=== PATIENT | female | born 1955 | race Caucasian/White ===

== ENCOUNTER 2017-06-29 15:31 | Emergency (ER) | payer OTHER ==
[2017-06-29] MEDS ORDERED: Ondansetron ODT TAB* 4 MG PO ONE ×2 (16:43→18:22)
--- NOTE | 2017-06-29 16:57 | ED ---
Respiratory - HPI Summary HPI Summary: 62F presents with sinus congestion, cough and SOB for a week. She admits to ear pressure, sore throat, chest tightened, generalized body aches especially in her back. She admits to nausea and vomiting. She has history of heart murmur. She is taking cough medication without relief. She denies any swelling into her legs or history of CHF. She did smoke in the past but has not smoked since. She denies any history of asthma or COPD. She denies any history of NC. She states the cough was dry and then became productive. She admits to generalized abdominal pain. She denies any dysuria, hematuira, frequency, or flank pain. she states her back hurts the most. She denies any injury. She denies any loss of bowel or bladder or saddle anaesthesia. - History of Current Complaint Chief Complaint: EDUpperRespComplaint Stated Complaint: SOB Time Seen by Provider: 06/29/17 16:24 Pain Intensity: 9 - Allergy/Home Medications Allergies/Adverse Reactions: Allergies Allergy/AdvReac Type Severity Reaction Status Date / Time Aspirin Allergy Bleeding Verified 06/29/17 15:39 PMH/Surg Hx/FS Hx/Imm Hx Endocrine/Hematology History: Reports: Hx Thyroid Disease Denies: Hx Anticoagulant Therapy, Hx Diabetes Cardiovascular History: Reports: Hx Hypertension Musculoskeletal History: Denies: Hx Osteoporosis - Cancer History Hx Chemotherapy: No Hx Radiation Therapy: No - Surgical History Surgery Procedure, Year, and Place: TUMMY TUCK; LIPOSUCTION Infectious Disease History: No Infectious Disease History: Denies: Traveled Outside the [place] in Last 30 Days - Family History Known Family History: Positive: Hypertension Review of Systems Positive: Fever Positive: Chest Pain Positive: Shortness Of Breath, Cough Positive: Vomiting, Nausea All Other Systems Reviewed And Are Negative: Yes Physical Exam Triage Information Reviewed: Yes Vital Signs On Initial Exam: Initial Vitals Temp Pulse Resp BP Pulse Ox 98.9 F 90 18 160/76 100 06/29/17 15:36 06/29/17 15:36 06/29/17 15:36 06/29/17 15:36 06/29/17 15:36 Vital Signs Reviewed: Yes Appearance: Positive: Ill-Appearing Skin: Positive: Warm, Dry Head/Face: Positive: Normal Head/Face Inspection Eyes: Positive: Normal, EOMI, ASHLEE, Conjunctiva Clear ENT: Positive: Pharynx normal, Nasal congestion, TMs normal Respiratory/Lung Sounds: Positive: Breath Sounds Present, Other - upper resp sounds heard Cardiovascular: Positive: Normal, RRR Abdomen Description: Positive: Soft, Other: - diffuse tenderness. Negative: CVA Tenderness (R), CVA Tenderness (L) Bowel Sounds: Positive: Present Musculoskeletal: Positive: Normal, Strength/ROM Intact - back, Other - tender across lower back Neurological: Positive: Normal Psychiatric: Positive: Normal Diagnostics - Vital Signs Vital Signs Temp Pulse Resp BP Pulse Ox 06/29/17 15:36 98.9 F 90 18 160/76 100 - Laboratory Result Diagrams: 06/29/17 17:32 06/29/17 17:32 Lab Statement: Any lab studies that have been ordered have been reviewed, and results considered in the medical decision making process. - Radiology chest Xray Interpretation: No Acute Changes Radiology Interpretation Completed By: Radiologist - EKG No standard instances Cardiac Rate: NL EKG Rhythm: Sinus Rhythm EKG Interpretation: normal sinus rthymn, no generalized ST elevation EKG Comparison: Other - no previous EKG Disposition - Course Course Of Treatment: 62F presents with sinus congestion, cough and SOB for a week. She admits to ear pressure, sore throat, chest tightened, generalized body aches especially in her back. She admits to nausea and vomiting. She has history of heart murmur. She is taking cough medication without relief. She denies any swelling into her legs or history of CHF. She did smoke in the past but has not smoked since. She denies any history of asthma or COPD. She denies any history of NC. She states the cough was dry and then became productive. She admits to generalized abdominal pain. She denies any dysuria, hematuira, frequency, or flank pain. she states her back hurts the most. She denies any injury. She denies any loss of bowel or bladder or saddle anaesthesia. on exam has sinus congestions. lungs sound congestion but no consolidation. patient appears ill on exam. has tenderness across abdomen and back. chest xray normal. labs normal wbc, lactic, normal urine. EKG no diffuse ST elevation to think pericarditis, will treat for pneumonia although xray normal as patient appears ill. will give steriod, inhaler, zofran, and cough medication for symptoms. patient understands and agrees with plan. - Differential Dx - Cardiopulmonary Differential Diagnoses - Cardiopulmonary: Acute Dyspnea, Bronchitis, Lower Resp Infection - Diagnoses Provider Diagnoses: Upper respiratory infection Discharge - Discharge Plan Condition: Good Disposition: HOME Prescriptions: Azithromycin TAB* [Zithromax TAB (Z-LUIS MANUEL) 250 mg #6 tabs] 250 mg PO DAILY #4 tab Ondansetron ODT TAB* [Zofran 4 MG Odt TAB*] 4 mg PO Q6H PRN #12 tab.odt PRN Reason: Nausea guaiFENesin/CODIEN 100MG-10MG* [Robitussin AC 100Mg-10Mg*] 5 ml PO Q6H PRN #50 ml MDD 20ml PRN Reason: Cough predniSONE TAB* [Deltasone TAB*] 40 mg PO DAILY #8 tab Patient Education Materials: Upper Respiratory Infection (ED) Referrals: Tatiana Gómez MD [Primary Care Provider] - Additional Instructions: Take cough medication 5ml (1 teaspoon) every 6 hours as needed cough Use inhaler up to two puffs every 4-6 hours for cough Take steroid once a day starting tomorrow Take zofran every 6 hours for nausea Take antibiotic once a day for 4 more days Use saline in the nose for nasal congestion, can also get Sudafed at pharmacy counter for nasal congestion Use humidifier or place warm bowls of water around the room for cough Take Tylenol or ibuprofen for pain every 6 hours Return to ED if develop any new or worsening symptoms
[2017-06-29] MEDS ORDERED: Acetaminophen TAB* 325 MG PO ONE (17:12)
[2017-06-29] MEDS ORDERED: NS 0.9% 1000 ML* 1,000 ML IV ONE (17:13)
[2017-06-29 17:51] LABS: Hematocrit 43 % (35-47); Hemoglobin 14.3 g/dl (12.0-16.0); Mean Corpuscular HGB Conc 33 g/dl (31-36); Mean Corpuscular Hemoglobin 27 pg (27-31); Mean Corpuscular Volume 82 fL (80-97); Mean Platelet Volume 9 um3 (7.4-10.4); Red Blood Count 5.25 10^6/ul (4.0-5.4); Red Cell Distribution Width 14 % (10.5-15); White Blood Count 6.6 10^3/ul (3.5-10.8)
--- NOTE | 2017-06-29 18:01 | RAD ---
INDICATION: Cough and shortness of breath COMPARISON: None TECHNIQUE: PA and lateral views of the chest were obtained. FINDINGS: The heart and mediastinum are normal in size and contour. The lungs are grossly clear. There is no evidence of large pleural effusion. Visualized bones are normal for the patient's age. There is no radiographic evidence of free air beneath the diaphragm IMPRESSION: No radiographic evidence of acute cardiopulmonary disease.
[2017-06-29 18:03] LABS: Urine Bilirubin Negative (Negative); Urine Glucose Negative (Negative); Urine Nitrite Negative (Negative)
[2017-06-29 18:03] LABS: ALT 27 U/L (7-52); AST 25 U/L (13-39); Albumin 4.3 g/dL (3.2-5.2); Alkaline Phosphatase 44 U/L (34-104); Anion Gap 8 mmol/L (2-11); BUN/Creatinine Ratio 20.2 (8-20); Blood Urea Nitrogen 18 mg/dL (6-24); CO2 Carbon Dioxide 26 mmol/L (22-32); Calcium 9.1 mg/dL (8.6-10.3); Chloride 99 mmol/L (101-111); EGFR African American 82.9 (>60); EGFR Non-African American 64.5 (>60); Globulin 3.1 g/dL (2-4); Glucose 110 mg/dL (70-100); Lipase < 10 U/L (11.0-82.0); Magnesium 2.2 mg/dL (1.9-2.7); Sodium 133 mmol/L (133-145); Total Protein 7.4 g/dL (6.4-8.9)
[2017-06-29] MEDS ORDERED: Azithromycin TAB* 250 MG PO ONE (18:16)
[2017-06-29] MEDS ORDERED: predniSONE TAB* 20 MG PO ONE (18:16)
[2017-06-29] MEDS ORDERED: guaiFENesin/CODIEN 100MG-10MG* 5 ML UDC PO ONE ×2 (18:22→18:35)
[2017-06-29] MEDS ORDERED: Albuterol HFA INHALER* 8 gm MDI INH ONE (18:22)
[2017-06-29 18:38] VITALS: BP 115/66
== END 2017-06-29 18:55 | disposition home or self-care (01) ==
LOC: ED 15:31
DX: J06.9 Acute upper respiratory infection, unspecified (principal); E07.9 Disorder of thyroid, unspecified; I10 Essential (primary) hypertension; Z88.6 Allergy status to analgesic agent
CPT/HCPCS: 36415; 71020; 80053; 81003; 83605; 83690; 83735; 83880; 84484; 85025; 87040; 93005; 96360; 99283; A9270-GY; J7512

== ENCOUNTER 2018-02-11 08:46 | Day surgery (SDC) | payer OTHER ==
[~2018-02-11 08:46] MED LIST: Acetaminophen TAB* 325 MG PO PRN; Buffered Lidocaine 0.9% SYRIN* 5 ML/SYR SYRINGE INTRADERM ONE
[2018-02-11] MEDS ORDERED: Midazolam* 1 MG/ML 2 ML VIAL (2 MG) ONE ×3 (10:31→10:56)
[2018-02-11] MEDS ORDERED: fentaNYL* 50 MCG/ML 2 ML VIAL (100 MCG VIAL) ONE (10:41)
[2018-02-11] MEDS ORDERED: Lidocaine 2% PF * 5 ML VIAL ONE (11:16)
[2018-02-11] MEDS ORDERED: Propofol* 10 MG/ML 20 ML BTL IV PUSH ONE (11:16)
[2018-02-11 11:33] VITALS: BP 114/69
[2018-02-11] MEDS ORDERED: Carbachol 0.01% OPH.SOL* 1.5 ML OPHTH.SOLN ONE (12:02)
[2018-02-11] MEDS ORDERED: Cyclopentolate 1% OPTH.SOL* 2 ML BTL ONE (13:05)
[2018-02-11] MEDS ORDERED: Lidocaine 1%* 5 ML VIAL ONE (13:05)
[2018-02-11] MEDS ORDERED: Tropicamide 1% OPTH.SOL* BTL ONE (13:05)
[2018-02-11] MEDS ORDERED: Phenylephrine 2.5% OPTH.SOL* 2 ML BTL ONE (13:05)
[2018-02-11] MEDS ORDERED: Neomycin/Polymy/Dex OPHTH.OIN* 3.5 GM ONE (13:05)
[2018-02-11] MEDS ORDERED: Tetracaine 0.5% OPTH.SOL 4 ML* 1 DROP BTL ONE (13:05)
[2018-02-11] MEDS ORDERED: Ketorolac 0.5% OPHTH (NF) 0.5 % 5 ML BTL ONE (13:05)
--- NOTE | 2018-02-11 22:18 | OP ---
DATE OF OPERATION: 02/11/18 - [facility] DATE OF : 57 SURGEON: Nico Stoddard MD ANESTHESIA: Local MAC. PRE-OP DIAGNOSIS: Cataract, right eye. POST-OP DIAGNOSIS: Cataract, right eye. OPERATIVE PROCEDURE: Phacoemulsification and cataract extraction with posterior chamber intraocular lens implant in sulcus and anterior vitrectomy. DESCRIPTION OF PROCEDURE: The patient was brought to the operating room and received intravenous sedation. A drop of tetracaine was placed into her right eye. The patient was prepped and draped in the usual sterile fashion for ophthalmic surgery and attention was directed to the right eye where a speculum was placed. A paracentesis was created at the 11 o'clock position and 0.1 cc of 1% preservative- free lidocaine was injected into the anterior chamber followed by DisCoVisc. The eye was digitally stabilized while a 2.75-mm keratome was used to create a triplanar clear corneal incision at the 9 o'clock position. A continuous curvilinear capsulorrhexis was created with a cystotome and Utrata forceps. The patient moved during this point in the procedure and caused the anterior capsulorrhexis to be somewhat oval in shape. BSS on a cannula was used to hydrodissect the lens from the capsule. Phacoemulsification was performed in a [id number] technique to create four fragments. Three of them were removed and during removal of the fourth fragment, the capsule noted to tear. The fourth fragment was elevated with viscoelastic through the paracentesis and , although an attempt was made to remove it with gentle phacoemulsification, part of the fourth fragment floated into the vitreous. Further viscoelastic was placed into the capsular bag area to help tamponade possible vitreous coming forward. The paracentesis was extended slightly and a second paracentesis was created at the 7 o'clock position. A bimanual vitrector was introduced into the eye through these 2 paracentesis. Vitrectomy was performed to remove any possible vitreous as well as clean remaining cortical material. The vitrectomy instruments removed and viscoelastic was then injected into the sulcus. It appeared that the anterior capsule was intact and no vitreous was noted. An MN60AC 23.5 diopter lens was manually folded and inserted through the initial wound such that the leading haptic was in the sulcus. The trailing haptic was dunked into place using a curved tying forceps. The vitrectomy instrument was reintroduced into the eye and was used to remove viscoelastic from posterior to the lens. Anterior to the lens, there was no vitreous noted. So, irrigation and aspiration through the anterior vitrectomy was performed. Miostat was placed into the anterior chamber to constrict the pupil, which became small and round but no vitreous noted. BSS on a cannula was used to hydrate the wounds. At the end of the case, the pupil was round, the lens was centered in the sulcus. The eye pressure appeared normal, and the wounds were water tight. Topical Maxitrol ointment was placed on the surface of the eye. The eye was closed, patched, and shielded. The patient was sent to the recovery room with postop instructions and followup appointment given. [id number]/[facility] #: [id number] DEJON
== END 2018-02-11 11:48 | disposition home or self-care (01) ==
LOC: OREAST 08:46
PROVIDERS: ATTEND Ophthalmology
DX: H25.11 Age-related nuclear cataract, right eye (principal); Z87.891 Personal history of nicotine dependence; I34.0 Nonrheumatic mitral (valve) insufficiency; I45.10 Unspecified right bundle-branch block; M19.90 Unspecified osteoarthritis, unspecified site; F41.8 Other specified anxiety disorders
CPT/HCPCS: A9270-GY; J2250; J2704; J3010; V2632

== ENCOUNTER 2018-02-16 09:32 | Emergency (ER) | payer OTHER ==
[2018-02-16] MEDS ORDERED: NS 0.9% 1000 ML* 1,000 ML IV ONE (10:35)
[2018-02-16 10:50] LABS: ABS Basophils 0.1 10^3/ul (0-0.2); ABS Eosinophils 0 10^3/ul (0-0.6); ABS Lymphocytes 2.7 10^3/ul (1.0-4.8); ABS Monocytes 0.5 10^3/ul (0-0.8); ABS Neutrophils 4.1 10^3/ul (1.5-7.7); ABS Nucleated RBC 0 10^3/ul; Eosinophil % 0.3 % (0-6); Hematocrit 39 % (35-47); Hemoglobin 13.4 g/dl (12.0-16.0); Lymphocyte % 36.5 % (25-47); Mean Corpuscular HGB Conc 34 g/dl (31-36); Mean Corpuscular Hemoglobin 28 pg (27-31); Mean Corpuscular Volume 82 fL (80-97); Mean Platelet Volume 9.4 um3 (7.4-10.4); Nucleated Red Blood Cells % 0.1; Platelet Count 244 10^3/ul (150-450); Red Cell Distribution Width 14 % (10.5-15); White Blood Count 7.4 10^3/ul (3.5-10.8)
[2018-02-16 11:06] LABS: EGFR Non-African American 78.6 (>60)
[2018-02-16] MEDS ORDERED: Iodixanol* (CONTRAST) 320 MG/ML 100 ML SDV IV ONE (11:26)
--- NOTE | 2018-02-16 12:32 | RAD ---
INDICATION: Epigastric pain x1 week COMPARISON: None TECHNIQUE: Supine and upright views of the abdomen were obtained. FINDINGS: The small bowel and colon appear nondistended. No free intraperitoneal air is seen. No grossly abnormal or pathologic appearing calcifications are noted. Visualized bones are within normal limits for the patient's age. IMPRESSION: Normal abdominal radiograph.
[2018-02-16 12:59] LABS: Urine Appearance Clear; Urine Blood Negative (Negative); Urine Color Yellow; Urine Ketones Trace (Negative); Urine Protein Negative (Negative); Urine Specific Gravity 1.058 (1.010-1.030); Urine Urobilinogen Negative (Negative)
--- NOTE | 2018-02-16 13:11 | RAD ---
CLINICAL HISTORY: 2 weeks of abdominal pain and dark stools. Relevant surgical history includes "bleeding from ulcers" COMPARISON: None TECHNIQUE: Contrast enhanced CT examination of the abdomen and pelvis from the lung bases through the initial tuberosities. The patient received 100 mL Visipaque 320 intravenously prior to imaging. FINDINGS: VISUALIZED LUNG BASES: The visualized lung bases are grossly clear. There is no pleural effusion. ABDOMEN AND PELVIS: The liver is homogenously hypodense relative to the spleen. In the right lobe of the liver there is a 4 mm hypoattenuating focus that cannot be characterized further on this CT examination. Also in the right lobe of the liver adjacent to the gallbladder (axial image 34) there is an 11 mm hypoattenuating focus with a Hounsfield unit greater than that of a simple cyst. The spleen, pancreas and adrenal glands are grossly normal in appearance. The gallbladder is normal. The kidneys are normal in appearance without focal mass, calcification or signs of hydronephrosis. Evaluation of the gastrointestinal tract is limited in the absence of oral contrast. The small and large bowel are not distended. The patient's normal appendix is identified in the right lower quadrant with gas in the lumen measuring 5 mm in diameter (axial image 62). There are diverticula throughout the length of the colon becoming more concentrated at the rectosigmoid colon where there are foci of inspissated contrast. There is no definite inflammatory change including bowel wall thickening although evaluation is limited without oral contrast in the lumen. There is no definite pericolonic mesenteric fat stranding. There is no gross retroperitoneal or mesenteric lymphadenopathy. The pelvic viscera is normal in appearance. The abdominal aorta and iliac arteries are normal in course and diameter. Multilevel degenerative changes of the lower thoracic and lumbar spine includes loss of intervertebral disc height and anterior marginal osteophyte formation at the level of the thoracic spine.There are no sinister bone lesions. IMPRESSION: 1. Colonic diverticulosis without definite focal inflammatory change characteristic of acute diverticulitis within the limitations of a CT exam without oral contrast. 2. Normal appendix. 3. At least 2 low-attenuation lesions in the right lobe of the liver, the larger measuring 11 mm with a Hounsfield unit greater than that of a simple cyst. There is no prior liver imaging available for comparison to comment on chronicity. Recommend nonemergent liver ultrasound or MRI for further characterization. 4. Additional chronic and degenerative changes.
--- NOTE | 2018-02-16 13:55 | ED ---
Deborah Pineda Julia, scribed for Ace Platt MD on 02/16/18 at 1034 . Abdominal Pain/Female - HPI Summary HPI Summary: This patient is a 62 year old F presenting to [facility] with a chief complaint of abdominal pain for the past two weeks worsening with black stool today. She states that for the past two days she has been taking Pepto Bismol for her symptoms. She is concerned for a GI bleed because she had similar symptoms in the past, resulting in an upper GI bleed. Current pain is 3/10. Patient states she is currently hungry. - History of Current Complaint Chief Complaint: EDAbdPain Stated Complaint: ABD PAIN,DARK STOOL Time Seen by Provider: 02/16/18 10:12 Hx Obtained From: Patient Onset/Duration: Gradual Onset Timing: Constant Pain Intensity: 3 Pain Scale Used: 0-10 Numeric Location: Diffuse Alleviating Factor(s): Nothing Associated Signs and Symptoms: Positive: Other: - melena Allergies/Adverse Reactions: Allergies Allergy/AdvReac Type Severity Reaction Status Date / Time aspirin Allergy Bleeding Verified 02/11/18 09:33 hydrocodone [From Vicodin] Allergy n/v Verified 02/11/18 09:33 NSAIDS (Non-Steroidal Allergy gi bleed Verified 02/11/18 09:33 Anti-Inflamma Home Medications: Home Medications Ciprofloxacin 0.3% OPTH.TATIANA* [Cipro 0.3% Opth*] 1 drop RIGHT EYE QID 02/16/18 [ History Confirmed 02/16/18] Dorzolamide HCl/Timolol Maleat [Cosopt Eye Drops] 1 drop RIGHT EYE TID 02/16/18 [History Confirmed 02/16/18] Dorzolamide/Timolol OPTH (NF) [Cosopt (NF)] 1 drop RIGHT EYE BID 02/16/18 [ History Confirmed 02/16/18] Magnesium Oxide [Magnesium] 400 mg PO DAILY 02/16/18 [History Confirmed 02/16/18 ] Multivitamins/Minerals TAB* [Theragran/minerals TAB*] 1 tab PO DAILY 02/16/18 [ History Confirmed 02/16/18] prednisoLONE acetate [Prednisolone Acetate] 1 drop RIGHT EYE QID 02/16/18 [ History Confirmed 02/16/18] PMH/Surg Hx/FS Hx/Imm Hx Endocrine/Hematology History: Reports: Hx Diabetes - borderline, no meds, Hx Thyroid Disease Denies: Hx Anticoagulant Therapy Cardiovascular History: Reports: Hx Hypertension - no meds, Hx Valvular Heart Disease - currently being tested Denies: Other Cardiovascular Problems/Disorders GI History: Reports: Hx Gastroesophageal Reflux Disease, Hx Irritable Bowel Denies: Other GI Disorders Musculoskeletal History: Reports: Hx Arthritis - back, fingers, knees Denies: Hx Osteoporosis, Other Musculoskeletal History Sensory History: Reports: Hx Cataracts - ashlie, Hx Contacts or Glasses - glasses Denies: Hx Hearing Aid Opthamlomology History: Reports: Hx Cataracts - ashlie, Hx Contacts or Glasses - glasses Neurological History: Reports: Hx Headaches - in morning, Hx Migraine Psychiatric History: Reports: Hx Anxiety - at times, Hx Depression - no meds - Cancer History Hx Chemotherapy: No Hx Radiation Therapy: No - Surgical History Surgery Procedure, Year, and Place: TUMMY TUCK; LIPOSUCTION, 25 yrs ago, oz Hx Anesthesia Reactions: No Infectious Disease History: No Infectious Disease History: Denies: Traveled Outside the [place] in Last 30 Days - Family History Known Family History: Positive: Hypertension - Social History Alcohol Use: None Substance Use Type: Reports: None Smoking Status (MU): Former Smoker Amount Used/How Often: pack a day for 20 yrs Review of Systems Negative: Fever Gastrointestinal: Other - melena Positive: Abdominal Pain All Other Systems Reviewed And Are Negative: Yes Physical Exam - Summary Physical Exam Summary: VITAL SIGNS: Reviewed. GENERAL: Patient is a well-developed and nourished female who is lying comfortable in the stretcher. Patient is not in any acute respiratory distress. HEAD AND FACE: No signs of trauma. No ecchymosis, hematomas or skull depressions. No sinus tenderness. EYES: PERRLA, EOMI x 2, No injected conjunctiva, no nystagmus. EARS: Hearing grossly intact. Ear canals and tympanic membranes are within normal limits. MOUTH: Oropharynx within normal limits. NECK: Supple, trachea is midline, no adenopathy, no JVD, no carotid bruit, no c- spine tenderness, neck with full ROM. CHEST: Symmetric, no tenderness at palpation LUNGS: Clear to auscultation bilaterally. No wheezing or crackles. CVS: Regular rate and rhythm, S1 and S2 present, no murmurs or gallops appreciated. ABDOMEN: Soft, LUQ tenderness. No signs of distention. No rebound no guarding, and no masses palpated. Bowel sounds are normal. EXTREMITIES: FROM in all major joints, no edema, no cyanosis or clubbing. NEURO: Alert and oriented x 3. No acute neurological deficits. Speech is normal and follows commands. 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 Triage Information Reviewed: Yes Vital Signs On Initial Exam: Initial Vitals Temp Pulse Resp BP Pulse Ox 97.5 F 65 17 142/86 98 02/16/18 09:42 02/16/18 09:42 02/16/18 09:42 02/16/18 09:42 02/16/18 09:42 Vital Signs Reviewed: Yes Diagnostics - Vital Signs Vital Signs Temp Pulse Resp BP Pulse Ox 02/16/18 09:42 97.5 F 65 17 142/86 98 - Laboratory Lab Results: Lab Results 02/16/18 02/16/18 02/16/18 Range/Units 10:41 10:41 12:40 WBC 7.4 (3.5-10.8) 10^3/ul RBC 4.80 (4.0-5.4) 10^6/ul Hgb 13.4 (12.0-16.0) g/dl Hct 39 (35-47) % MCV 82 (80-97) fL MCH 28 (27-31) pg MCHC 34 (31-36) g/dl RDW 14 (10.5-15) % Plt Count 244 (150-450) 10^3/ul MPV 9.4 (7.4-10.4) um3 Neut % (Auto) 55.2 (38-83) % Lymph % (Auto) 36.5 (25-47) % [place] % (Auto) 7.1 H (0-7) % Eos % (Auto) 0.3 (0-6) % Baso % (Auto) 0.9 (0-2) % Absolute Neuts (auto) 4.1 (1.5-7.7) 10^3/ul Absolute Lymphs (auto) 2.7 (1.0-4.8) 10^3/ul Absolute Monos (auto) 0.5 (0-0.8) 10^3/ul Absolute Eos (auto) 0 (0-0.6) 10^3/ul Absolute Basos (auto) 0.1 (0-0.2) 10^3/ul Absolute Nucleated RBC 0 10^3/ul Nucleated RBC % 0.1 Sodium 139 (139-145) mmol/L Potassium 3.8 (3.5-5.0) mmol/L Chloride 107 (101-111) mmol/L Carbon Dioxide 28 (22-32) mmol/L Anion Gap 4 (2-11) mmol/L BUN 22 (6-24) mg/dL Creatinine 0.75 (0.51-0.95) mg/dL Est GFR ( Amer) 101.0 (>60) Est GFR (Non-Af Amer) 78.6 (>60) BUN/Creatinine Ratio 29.3 H (8-20) Glucose 99 (70-100) mg/dL Calcium 9.0 (8.6-10.3) mg/dL Total Bilirubin 0.60 (0.2-1.0) mg/dL AST 16 (13-39) U/L ALT 15 (7-52) U/L Alkaline Phosphatase 55 (34-104) U/L C-Reactive Protein 5.15 H (< 5.00) mg/L Total Protein 6.5 (6.4-8.9) g/dL Albumin 3.9 (3.2-5.2) g/dL Globulin 2.6 (2-4) g/dL Albumin/Globulin Ratio 1.5 (1-3) Lipase 148 H (11.0-82.0) U/L Urine Color Yellow Urine Appearance Clear Urine pH 5.0 (5-9) Ur Specific [place] 1.058 H (1.010-1.030) Urine Protein Negative (Negative) Urine Ketones Trace A (Negative) Urine Blood Negative (Negative) Urine Nitrate Negative (Negative) Urine Bilirubin Negative (Negative) Urine Urobilinogen Negative (Negative) Ur Leukocyte Esterase Negative (Negative) Urine Glucose Negative (Negative) Result Diagrams: 02/16/18 10:41 02/16/18 10:41 Lab Statement: Any lab studies that have been ordered have been reviewed, and results considered in the medical decision making process. - Radiology Abdomen XR Radiology Interpretation Completed By: Radiologist - Normal abdominal radiograph. ED Physician has reviewed this report. - CT Abdominal CT CT Interpretation Completed By: Radiologist - 1. Colonic diverticulosis without definite focal inflammatory change characteristic of acute diverticulitis within the limitations of a CT exam without oral contrast. 2. Normal appendix. 3. At least 2 low-attenuation lesions in the right lobe of the liver, the larger measuring 11 mm with a Hounsfield unit greater than that of a simple cyst. There is no prior liver imaging available for comparison to comment on chronicity. Recommend nonemergent liver ultrasound or MRI for further characterization. 4. Additional chronic and degenerative changes. ED Physician has reviewed this report. - EKG 1121 Cardiac Rate: Bradycardia EKG Rhythm: Sinus Bradycardia - at 50 BPM EKG Interpretation: no ST elevations EKG Comparison: No Significant Change - 06/29/17 Re-Evaluation - Re-Evaluation First Re-Evaluation Time: 13:30 Change: Improved - Abdominal pain is resolved. Abdominal Pain Fem Course/Dx - Course Course Of Treatment: Initially the patient was placed on a body liner, IV access was obtained, and the patient was started and an IV fluids. Blood test results without any significant abnormality except 4 CRP of 5.1, and lipase 148. Occult blood test is negative. EKG: Normal sinus rhythm at without any ST elevations. Chest x-ray impression: No acute Pulmonary disease. In the ED course she remains stable with mild pain that she declines any pain medications. Patient reports that she is hungry and she needs something to eat. Abdominopelvic CT impression 1. Colonic diverticulosis without definite focal inflammatory change characteristic of acute diverticulitis within the limitations of a CT exam without oral contrast. 2. Normal appendix. 3. At least 2 low-attenuation lesions in the right lobe of the liver, the larger measuring 11 mm with a Hounsfield unit greater than that of a simple cyst. There is no prior liver. imaging available for comparison to comment on chronicity. Recommend non emergent liver. ultrasound or MRI for further characterization. 4. Additional chronic and degenerative changes. Since the patient has an increased lipase however the patients symptoms have resolved, she doesnt have any pain, she doesnt have any nausea vomiting the patient will be discharged home with follow-up with primary care physician. After the patient ate the patient is given better and she has no complaints. I discussed all the findings and test results with the patient. Patient was instructed to return to the emergency room immediately if any of the symptoms return or worsens. Plan of care was discussed with the patient and understands and agrees. All questions were answered at patient satisfaction. There were no further complaints or concerns. Lung exam before discharge: CTA B/L. Good air exchange. No wheezing or crackles heard. CVS: S1 and S2 present. No murmurs appreciated. Patient is alert and oriented x 3. Patient is hemodynamically stable. Patient will be discharged home with follow up PCP in the next 2-3 days. Patient was informed about the liver cyst and needs to follow up with the primary care physician. - Diagnoses Differential Diagnosis: Positive: Appendicitis, Bowel Obstruction, Constipation , Diverticulitis, Gall Bladder Disease Provider Diagnoses: Upper abdominal pain, Liver cyst Discharge - Sign-Out/Discharge Documenting (check all that apply): Discharge/Admit/Transfer - Discharge Plan Condition: Stable Disposition: HOME Patient Education Materials: Abdominal Pain (ED) Referrals: Tatiana Gómez MD [Primary Care Provider] - 2 Days Additional Instructions: RETURN TO THE EMERGENCY DEPARTMENT FOR ANY WORSENING OR NEW SYMPTOMS. - Billing Disposition and Condition Condition: STABLE Disposition: Home The documentation as recorded by the Deborah kidd Julia accurately reflects the service I personally performed and the decisions made by Lc moran Walter, MD.
[2018-02-16 14:15] VITALS: BP 142/81
== END 2018-02-16 14:19 | disposition home or self-care (01) ==
LOC: ED 09:32
DX: R10.10 Upper abdominal pain, unspecified (principal); K76.89 Other specified diseases of liver; K57.30 Diverticulosis of large intestine without perforation or abscess without bleeding; R00.1 Bradycardia, unspecified; Z87.891 Personal history of nicotine dependence; Z88.6 Allergy status to analgesic agent; Z88.5 Allergy status to narcotic agent
CPT/HCPCS: 36415; 74019; 74177; 80053; 81003; 82272; 83690; 85025; 86140; 93005; 96360; 96361; 99283; Q9967

== ENCOUNTER 2018-06-10 07:03 | Day surgery (SDC) | payer OTHER ==
[2018-06-10] MEDS ORDERED: Midazolam* 1 MG/ML 2 ML VIAL (2 MG) ONE ×2 (08:42→08:55)
[2018-06-10 09:28] VITALS: BP 107/64
[2018-06-10] MEDS ORDERED: Neomycin/Polymy/Dex OPHTH.OIN* 3.5 GM ONE (12:21)
[2018-06-10] MEDS ORDERED: Tetracaine 0.5% OPTH.SOL 4 ML* 1 DROP BTL ONE (12:21)
[2018-06-10] MEDS ORDERED: Phenylephrine 2.5% OPTH.SOL* 2 ML BTL ONE (12:21)
[2018-06-10] MEDS ORDERED: Tropicamide 1% OPTH.SOL* BTL ONE (12:21)
[2018-06-10] MEDS ORDERED: Ketorolac 0.5% OPHTH (NF) 0.5 % 5 ML BTL ONE (12:21)
[2018-06-10] MEDS ORDERED: Lidocaine 1%* 5 ML VIAL ONE (12:21)
[2018-06-10] MEDS ORDERED: Cyclopentolate 1% OPTH.SOL* 2 ML BTL ONE (12:21)
--- NOTE | 2018-06-11 09:53 | OP ---
DATE OF OPERATION: 06/10/18 [facility] DATE OF : 57 SURGEON: Dr. Nico Stoddard. SALT GRINDER: None. ANESTHESIA: Topical with intravenous sedation. PRE-OP DIAGNOSIS: Cataract, left eye. POST-OP DIAGNOSIS: Cataract, left eye. OPERATIVE PROCEDURE: Phacoemulsification and cataract extraction with posterior chamber intraocular lens implant, left eye. COMPLICATIONS: None. BLOOD LOSS: None. DESCRIPTION OF PROCEDURE: The patient was brought to the operating room and received a small amount of intravenous sedation. A drop of Tetracaine was placed in her left eye. She was prepped and draped in the usual sterile fashion for ophthalmic surgery and attention was directed to the left eye where a speculum was placed. A paracentesis was created at the 5 o'clock position and 0.1 cc of 1 percent preservative-free Lidocaine was injected into the anterior chamber followed by DisCoVisc. The eye was digitally stabilized while a 2.75 mm keratome was used to create a triplanar clear corneal incision at the 3 o'clock position. A continuous curvilinear capsulorrhexis was created with a cystotome and Utrata forceps. BSS on a cannula was used to hydrodissect the lens from the capsule. Phacoemulsification was performed in a divide-and- conquer technique to create four fragments which were removed. Residual cortical material was removed with irrigation and aspiration. DisCoVisc was used to inflate the capsular bag and an AU00T0 24.0 diopter lens was folded and inserted into the capsular bag. DisCoVisc was removed using irrigation and aspiration. BSS on a cannula was used to hydrate the corneal stroma and seal the wound. At the end of the case the pupil was round and the lens was centered. The eye was of normal pressure and the wound was water tight. The speculum was removed and topical Maxitrol ointment was placed on the surface of the eye. The eye was closed, patched and shielded and the patient was sent to the recovery room in stable condition with post operative instructions and follow-up appointment given. [id number]/[facility] #: [id number] DEJON
== END 2018-06-10 09:42 | disposition home or self-care (01) ==
LOC: OREAST 07:03
PROVIDERS: ATTEND Ophthalmology
DX: H25.12 Age-related nuclear cataract, left eye (principal); I34.0 Nonrheumatic mitral (valve) insufficiency; F41.8 Other specified anxiety disorders
CPT/HCPCS: A9270-GY; J2250; V2632

== ENCOUNTER 2018-07-11 09:46 | Day surgery (SDC) | payer OTHER ==
[~2018-07-11 09:46] MED LIST changes: -Acetaminophen TAB* 325 MG PO PRN; +Dexamethasone IV* 4 MG/ML 1 ML (4 MG) IV SLOW PU ONE; +Famotidine IV* 10 MG/ML 2 ML (20 mg) IV ONE
[2018-07-11] MEDS ORDERED: Famotidine IV* 10 MG/ML 2 ML (20 mg) ONE (10:19)
[2018-07-11] MEDS ORDERED: Dexamethasone IV* 4 MG/ML 1 ML (4 MG) ONE (10:19)
[2018-07-11] MEDS ORDERED: ceFAZolin 2 GM PREMIX in ORs 2 GM/50 ML BAG IVPB ONE (10:19)
[2018-07-11] MEDS ORDERED: Morphine VIAL* 10 MG/ML 1 ML VIAL ONE (10:37)
[2018-07-11] MEDS ORDERED: EPINEPHRINE 1 MG/ML 1 ML VIAL ONE (10:52)
[2018-07-11] MEDS ORDERED: Bupivacaine 0.5% SDV PF* 30ML VIAL ONE (10:52)
[2018-07-11] MEDS ORDERED: Bupivacaine 0.5% W/EPI SDV* 30 ML VIAL ONE ×2 (10:53→11:41)
[2018-07-11] MEDS ORDERED: Midazolam* 1 MG/ML 2 ML VIAL (2 MG) ONE (11:54)
[2018-07-11] MEDS ORDERED: fentaNYL* 50 MCG/ML 2 ML VIAL (100 MCG VIAL) ONE (11:54)
[2018-07-11] MEDS ORDERED: Lidocaine 2% PF * 5 ML VIAL ONE (11:55)
[2018-07-11] MEDS ORDERED: Propofol* 10 MG/ML 20 ML BTL IV PUSH ONE (11:55)
[2018-07-11] MEDS ORDERED: EPHEDrine (Pressors)* 50 MG/ML VIAL ONE (12:09)
[2018-07-11] MEDS ORDERED: Ondansetron INJ* 2 MG/ML VIAL ONE (12:23)
[2018-07-11] MEDS ORDERED: oxyCODONE TAB* 5 MG TAB PO PRN (12:25)
[2018-07-11] MEDS ORDERED: Naloxone* 0.4 MG/ML 1 ML VIAL IV PRN (12:25)
[2018-07-11] MEDS ORDERED: DiMENhydriNATE IV* 50 MG/ML VIAL IV PUSH PRN (12:25)
[2018-07-11] MEDS ORDERED: fentaNYL* 50 MCG/ML 2 ML VIAL (100 MCG VIAL) IV PRN (12:25)
[2018-07-11 13:47] VITALS: BP 134/69
--- NOTE | 2018-07-14 00:20 | OP ---
DATE OF OPERATION: 07/11/18 - MERGED WITH [facility] DATE OF : 57 SURGEON: Pedro York MD BB SHOT PACKER: WILNER Granados. Physician recruitment and outreach assistant was required for the length of the procedure for assistance with positioning, knee manipulation, and closure. ANESTHESIOLOGIST: Dr. Lokesh Vazquez. ANESTHESIA: General anesthesia, approximately 10 cc of 0.25% Marcaine with epinephrine local anesthesia. PRE-OP DIAGNOSIS: Right knee medial meniscus tear. POST-OP DIAGNOSES: 1. Right knee medial meniscus tear. 2. Right knee lateral meniscus tear. OPERATIVE PROCEDURE: Right knee arthroscopic medial and lateral partial meniscectomy. 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 The patient responded insufficiently to nonoperative management and opted for surgery on a medial meniscus tear, confirmed by MRI. I, believe, there was a displaced fragment into the inferomedial gutter along with horizontal or oblique medial meniscus tear. ANTIBIOTICS: 2 g Ancef IV. IV FLUIDS: 1000 cc crystalloid received perioperatively and intraoperatively. TOURNIQUET TIME: 14 minutes at 300 mmHg. HVOV-LY-SVCN TIME: 13 minutes. ARTHROSCOPY FLUID UTILIZED: Not recorded by me. COMPLICATIONS: None. ESTIMATED BLOOD LOSS: Minimal. SPECIMEN: None. IMPLANTS: None. DESCRIPTION OF PROCEDURE: In the preoperative holding, the patient signed written consent, where the operative extremity was marked in preoperative holding. The patient was taken back to the operating room and placed supine on operating room table. The patient was sedated and intubated. A tourniquet was placed around the proximal right thigh. A circumferential thigh lopez was placed about the right distal thigh. The table was elevated and the foot of the table was dropped. The right lower extremity was prepped with chlorhexidine and then ChloraPrep. Prepped and draped. Surgical time-out was performed. Esmarch was applied and the tourniquet was elevated to 300 mmHg. Inferolateral knee arthroscopy portal was established. The patient had some bursitis in the patellofemoral compartment. I next moved to the medial compartment where the patient had some tearing, complex about the junction of the posterior body and posterior horn of the medial meniscus. No large displaced fragment was visualized. I established an anteromedial knee arthroscopy portal under direct visualization. I first debrided some ligamentum mucosum and anterior synovitis. I then proceeded to the medial compartment and debrided the medial meniscal tearing back to a stable rim of healthier tissue. I worked through the anteromedial and then the anterolateral portal, using arthroscopic shaver and meniscus biters. I next moved to the lateral compartment. The patient had some lower-grade inner surface fraying and tearing over the anterior horn of the body, lateral meniscus. I debrided this back to a stable rim with the arthroscopic shaver. I returned briefly to the patellofemoral compartment where I debrided some additional synovitic tissue opening up that compartment. I removed instruments and fluids from knee. We closed the skin incisions with [id number] 12 stitches using nylon 3-0 suture. Approximately 10 cc of 0.25% Marcaine with epinephrine was applied into the subcutaneous tissues about those incisions. Xeroform, 4x4s, ABD, sterile Webril, Elieser bandage from foot to proximal thigh. Tourniquet was dropped. A cooling unit was applied to the knee. DISPOSITION: The patient was extubated and brought to the PACU. The patient was given wound care instructions. The patient is to start physical therapy immediately. Tramadol p.r.n. pain. The patient will follow up with me in 10 to 14 days postoperatively. [id number]/[facility] #: [id number] DEJON
== END 2018-07-11 14:49 | disposition home or self-care (01) ==
LOC: OR 09:46
PROVIDERS: ATTEND Orthopaedic Surgery
DX: S83.241A Other tear of medial meniscus, current injury, right knee, initial encounter (principal); S83.281A Other tear of lateral meniscus, current injury, right knee, initial encounter; W01.0XXA Fall on same level from slipping, tripping and stumbling without subsequent striking against object, initial encounter; Y92.9 Unspecified place or not applicable; I34.0 Nonrheumatic mitral (valve) insufficiency; I45.10 Unspecified right bundle-branch block; I49.1 Atrial premature depolarization; R73.03 Prediabetes; Z87.891 Personal history of nicotine dependence
CPT/HCPCS: J0690; J1100; J2250; J2270; J2405; J2704; J3010